=== PATIENT | male | born 1980 | race Caucasian/White ===

== ENCOUNTER 2019-04-09 12:58 | Emergency (ER) | payer OTHER ==
--- NOTE | 2019-04-09 13:05 | PDOC ---
Rapid Medical Evaluation Time Seen by Provider: 04/09/19 13:04 Medical Evaluation: Allergies Allergy/AdvReac Type Severity Reaction Status Date / Time No Known Allergies Allergy Verified 04/09/19 13:04 04/09/19 13:04 I have performed a brief in-person evaluation of this patient. The patient presents with a chief complaint of: right ankle pain x "years" Pertinent physical exam findings: no focal deficits I have ordered the following: xray The patient will proceed to the ED for further evaluation. Discharge Disposition - Diagnosis Right ankle pain - Referrals - Patient Instructions - Post Discharge Activity
[2019-04-09 13:07] VITALS: BP 113/74; PULSE 63; TEMP 98.1; BMI 35.2
--- NOTE | 2019-04-09 13:30 | PDOC ---
History of Present Illness - General Chief Complaint: Pain, Acute Stated Complaint: RT FOOT PAIN Time Seen by Provider: 04/09/19 13:04 History Source: Patient Exam Limitations: Clinical Condition - History of Present Illness Initial Comments: 04/09/19 13:54 Patient with no significant past medical history present with complaint of over 2 year history of right ankle pain after twisting her ankle 2 years ago with intermittent right ankle pain which has been worsening last 30 days. Patient reported swelling to lateral aspect of right foot. Denies any new trauma or injury. Reported increased pain with ambulation. Patient did not take anything for pain. Denies numbness or tingling sensation or weakness right ankle foot Timing/Duration: getting worse, other (3 years) Past History - Past Medical History Allergies/Adverse Reactions: Allergies Allergy/AdvReac Type Severity Reaction Status Date / Time No Known Allergies Allergy Verified 04/09/19 13:04 Home Medications: Ambulatory Orders Naproxen 500 mg PO BID PRN #20 tablet 04/09/19 COPD: No - Immunization History Immunization Up to Date: Yes - Suicide/Smoking/Psychosocial Hx Smoking History: Never smoked Hx Alcohol Use: No Drug/Substance Use Hx: No Review of Systems - Review of Systems Able to Perform ROS?: Yes Is the patient limited Welsh proficient: No Constitutional: No: Malaise, Weakness HEENTM: No: Symptoms Reported Respiratory: No: Symptoms reported Cardiac (ROS): No: Symptoms Reported Musculoskeletal: Yes: Symptoms Reported, See HPI, Joint Pain (right ankle pain) , Muscle Pain (right ankle pain). No: Joint Stiffness Neurological: No: Symptoms reported, Numbness, Paresthesia, Tingling, Weakness All Other Systems: Reviewed and Negative *Physical Exam - Vital Signs Last Vital Signs Temp Pulse Resp BP Pulse Ox 98.1 F 63 18 113/74 98 04/09/19 13:04 04/09/19 13:04 04/09/19 13:04 04/09/19 13:04 04/09/19 13:04 - Physical Exam Comments: 04/09/19 13:27 GENERAL: Well developed, well nourished. Awake and alert in no acute distress. CARDIOVASCULAR: Regular rate and rhythm. No murmurs, rubs, or gallops. PULMONARY: No evidence of respiratory distress. MUSCULOSKELETAL : mild tenderness over lateral malleolus of right ankle. Mild swelling over lateral aspect of right midfoot. No bony deformities EXTREMITIES: No cyanosis. No clubbing. No edema. No calf tenderness. SKIN: Warm and dry. Normal capillary refill. No bruising or ecchymosis. NEUROLOGICAL: Alert, awake, appropriate. No motor deficits in the lower extremities. Gait is normal without ataxia. PSYCHIATRIC: Cooperative. Good eye contact. Appropriate mood and affect. General Appearance: Yes: Nourished, Appropriately Dressed. No: Apparent Distress Medical Decision Making - Medical Decision Making 04/09/19 13:55 Patient with no significant past medical history present with complaint of over 2 year history of right ankle pain after twisting her ankle 2 years ago with intermittent right ankle pain which has been worsening last 30 days. Patient reported swelling to lateral aspect of right foot. Denies any new trauma or injury. Reported increased pain with ambulation. Patient did not take anything for pain. Denies numbness or tingling sensation or weakness right ankle foot Exam significant for mild tenderness over lateral malleolus of right ankle with mild swelling to lateral aspect of right midfoot. No visible deformity. Negative anterior-posterior drawer test of right ankle. X-ray of right ankle and foot shows no acute pathology or fracture. Patient's symptoms likely ankle with foot sprain. Ibuprofen 800 mg by mouth ordered for pain. Patient be discharged home on naproxen when necessary for pain with orthopedist follow-up as needed *DC/Admit/Observation/Transfer Diagnosis at time of Disposition: Right ankle pain Qualifiers: Chronicity: chronic Qualified Code(s): M25.571 - Pain in right ankle and joints of right foot Sprain of right foot Qualifiers: Encounter type: initial encounter Qualified Code(s): S93.601A - Unspecified sprain of right foot, initial encounter - Discharge Dispostion Disposition: HOME Condition at time of disposition: Stable Decision to Admit order: No - Prescriptions Prescriptions: Naproxen 500 mg PO BID PRN #20 tablet PRN Reason: pain - Referrals Referrals: Dion Balbuena DO [Staff Physician] - - Patient Instructions Printed Discharge Instructions: DI for Ankle Sprain, DI for Foot Sprain Additional Instructions: Your x-ray was normal. Your symptoms is likely from sprain. Take prescribed medication as needed for pain. Follow-up referred orthopedics as needed if symptoms persist - Post Discharge Activity
[2019-04-09] MEDS ORDERED: IBUPROFEN 400 MG TABLET (FP) PO ONE ×2 (13:51→13:57)
== END 2019-04-09 14:12 | disposition home or self-care (01) ==
LOC: JERFT 12:58
DX: S93.601A Unspecified sprain of right foot, initial encounter (principal); M25.571 Pain in right ankle and joints of right foot; X58.XXXA Exposure to other specified factors, initial encounter; Y93.89 Activity, other specified; Y92.89 Other specified places as the place of occurrence of the external cause
CPT/HCPCS: 73610-TC-RT-FY; 73630-TC-RT-FY; 99282-25

== ENCOUNTER 2019-10-29 09:05 | Emergency (ER) | payer OTHER ==
[2019-10-29 09:17] VITALS: BP 146/86; PULSE 66; TEMP 97.8; BMI 34.8
--- NOTE | 2019-10-29 09:53 | PDOC ---
History of Present Illness - General Chief Complaint: Back Pain Stated Complaint: BACK PAIN Time Seen by Provider: 10/29/19 09:41 History Source: Patient Exam Limitations: No Limitations - History of Present Illness Is this a multiple visit Asthma Patient?: No Past History - Travel Traveled outside of the country in the last 30 days: No - Past Medical History Allergies/Adverse Reactions: Allergies Allergy/AdvReac Type Severity Reaction Status Date / Time No Known Allergies Allergy Verified 10/29/19 09:14 Home Medications: Ambulatory Orders Betamethasone Dipropionate 1 appful TD BID 09/21/19 Cetirizine HCl 1 tab PO DAILY 09/21/19 Clotrimazole 1 appful TD BID 09/21/19 Cyclobenzaprine HCl [Flexeril -] 10 mg PO HS #7 tablet 10/29/19 Ibuprofen 800 mg PO ACDIN 10 Days #20 tablet 10/29/19 COPD: No - Immunization History Immunization Up to Date: Yes - Psycho Social/Smoking Cessation Hx Smoking History: Never smoked Information on smoking cessation initiated: No Hx Alcohol Use: No Drug/Substance Use Hx: No Review of Systems - Review of Systems Constitutional: No: Chills, Fever Respiratory: No: Orthopnea, Shortness of Breath Cardiac (ROS): No: Chest Pain ABD/GI: No: Abdominal Distended, Nausea, Vomiting, Abdominal cramping Musculoskeletal: Yes: Back Pain. No: Muscle Pain, Muscle Weakness Neurological: No: Headache, Numbness, Paresthesia, Tingling, Weakness, Dizziness *Physical Exam - Vital Signs Last Vital Signs Temp Pulse Resp BP Pulse Ox 97.8 F 66 17 146/86 98 10/29/19 09:14 10/29/19 09:14 10/29/19 09:14 10/29/19 09:14 10/29/19 09:14 - Physical Exam General Appearance: Yes: Nourished HEENT: positive: EOMI, FLAKITO Neck: positive: Supple Respiratory/Chest: positive: Lungs Clear, Normal Breath Sounds Cardiovascular: positive: Regular Rhythm, Regular Rate, S1, S2 Musculoskeletal: positive: Muscle Spasm (upper back, + paraspinal tendernes sin thoracic region) Extremity: positive: Normal Capillary Refill, Normal Inspection, Normal Range of Motion, Tender (R heel, FROM, distal pulse intact) Neurologic: positive: regulatory affairs analyst II-XII NML intact, Fully Oriented, Alert, Normal Mood/ Affect, Normal Response, Motor Strength 01/21 Medical Decision Making - Medical Decision Making 10/29/19 09:47 39 years old male with no prior medical history presents with upper back pain for 2 days. Patient denies cough, fever, chills or trauma. He denies any extremity weakness. Patient also complaining of right foot and heel pain that he is had for several months he has been seen here before was told he has a heel spur patient never followed up with podiatry as previously recommended due to lapse of insurance. He is requesting another referral to podiatry today. Discharge - Discharge Information Problems reviewed: Yes Clinical Impression/Diagnosis: Back muscle spasm Foot pain Qualifiers: Laterality: right Qualified Code(s): M79.671 - Pain in right foot Condition: Stable Disposition: HOME - Admission No - Additional Discharge Information Prescriptions: Cyclobenzaprine HCl [Flexeril -] 10 mg PO HS #7 tablet Ibuprofen 800 mg PO ACDIN 10 Days #20 tablet Prescription Drug Monitoring Program (I-STOP) results: I-STOP not reviewed - Follow up/Referral Referrals: Juan Moore MD [Staff Physician] - Arelis Esparza ACNP [Nurse Practitioner] - Ba Roche MD [Staff Physician] - - Patient Discharge Instructions Additional Instructions: Please make a primary care appointment for further evaluation and annual examination. Follow-up with podiatry for chronic right foot pain. You may take Motrin and the muscle relaxant was sent to the pharmacy. Please be advised you cannot drive drive and operate any heavy machinery while on the muscle relaxant as this can cause dizziness. Return to the emergency room if worsening symptoms occur. - Post Discharge Activity
== END 2019-10-29 10:02 | disposition home or self-care (01) ==
LOC: JERFT 09:05
DX: M62.830 Muscle spasm of back (principal); M79.671 Pain in right foot
CPT/HCPCS: 99283-25